=== PATIENT | female | born 1950 | race Caucasian/White ===

== ENCOUNTER 2020-04-07 07:56 | Inpatient (IN) | payer MEDICARE, MEDICAID ==
[~2020-04-07] VITALS: Ht 157.5 cm; Wt 98.6 kg
[~2020-04-07 07:56] MED LIST: BENA10TA9 PO; BIMA0.01 EACHEYE; CALC-6 OR; CLOP75TA41 PO; DIGO0.1262 PO; DIPH-232 PO; FUR40T PO; MULTTAB99 PO; POT10T PO; TRAM50TA2 PO
[2020-04-07] MEDS ORDERED: ACETAMINOPHEN/CODEINE#3 (300/30mg) TAB PO ONE (08:30)
[2020-04-07] MEDS ORDERED: MORPHINE SULF INJ 2 MG/ML SYRINGE 1ML IV ONE (09:15)
[2020-04-07] MEDS ORDERED: ONDANSETRON HCL 4 MG/2 ML VIAL IV ONE (09:15)
[2020-04-07 09:52] LABS: Basophils # (auto) 0 10 ^3/uL (0-0.2); Basophils % (auto) 0.2 % (0.0-2.0); Eosinophils # (auto) 0.1 10 ^3/uL (0-0.8); Eosinophils % (auto) 0.3 % (0.0-7.0); Hematocrit 44.8 % (36.0-46.0); Hemoglobin 14.7 g/dL (12.2-16.2); Lymphocytes # (auto) 1.6 10 ^3/uL (0.4-5.4); Lymphocytes % (auto) 10.8 % (10.0-50.0); Mean Corpuscular Hemoglobin 30.7 pg (28.0-32.0); Mean Corpuscular Hgb Conc. 32.8 g/dL (32.0-36.0); Mean Corpuscular Volume 93.7 fL (80.0-100.0); Monocytes # (auto) 0.7 10 ^3/uL (0-1.3); Monocytes % (auto) 4.8 % (0.0-12.0); Neutrophils # (auto) 12.4 10 ^3/uL (1.6-8.6); Neutrophils % (auto) 83.9 % (37.0-80.0); Platelet Count (auto) 319 10^3/uL (140-450); Red Blood Cells 4.78 10^6/uL (4.0-5.20); Red Cell Distribution Width 14.2 % (11.8-14.3); White Blood Cell 14.8 10^3/uL (4.4-10.8)
[2020-04-07 10:03] LABS: Albumin 3.2 g/dL (3.4-5.0); Anion Gap 4 (5-15); Blood Urea Nitrogen 14 mg/dL (7-18); Calcium 9.2 mg/dL (8.5-10.1); Carbon Dioxide 29 mmol/L (21-32); Chloride 106 mmol/L (98-107); Glucose 151 mg/dL (74-106); Potassium 4.3 mmol/L (3.5-5.1); Sodium 139 mmol/L (136-145)
[2020-04-07 10:09] LABS: Alanine Aminotransferase 24 U/L (13-56); Alkaline Phosphatase 108 U/L (45-117); Aspartate Aminotransferase 20 U/L (15-37); BUN/Creatinine Ratio 16.3; Bilirubin, Total 0.5 mg/dL (0.2-1.0); GFR African American 84 mL/min; GFR Non-African American 70 mL/min; INR 1.02 (0.9-1.15); Partial Thromboplastin Time 25.4 sec (23.0-31.2)
[2020-04-07] MEDS ORDERED: traMADol HCL 50 MG TAB PO PRN (11:15)
[2020-04-07] MEDS ORDERED: LACTULOSE 20Gm/30ML SOLN PO PRN (11:15)
[2020-04-07] MEDS ORDERED: ACETAMINOPHEN 500 MG TAB PO PRN (11:15)
[2020-04-07] MEDS ORDERED: GABA100C9 PO (11:52)
[2020-04-07] MEDS ORDERED: CHOL1TAB28 PO (11:52)
[2020-04-07] MEDS ORDERED: ALEN70TA56 PO (11:52)
[2020-04-07] MEDS ORDERED: FURO20TA3 PO (11:52)
[2020-04-07] MEDS ORDERED: METO25TA36 PO (11:52)
[2020-04-07] MEDS ORDERED: APIX5TAB PO (11:52)
[2020-04-07] MEDS ORDERED: ATOR20TA50 PO (11:52)
[2020-04-07] MEDS: MORPHINE SULF INJ 2 MG/ML SYRINGE 1ML IV PRN ×2 (14:31→23:18)
[2020-04-07] MEDS: ONDANSETRON HCL 4 MG/2 ML VIAL IV PRN ×2 (14:31→23:19)
[2020-04-07] MEDS: ACETAMINOPHEN 500 MG TAB PO PRN (20:10)
[2020-04-07] MEDS: CARVEDILOL 3.125 MG TAB PO SCH (22:00)
[2020-04-08 02:57] VITALS: BP 132/79
[2020-04-08] MEDS: MORPHINE SULF INJ 2 MG/ML SYRINGE 1ML IV PRN (03:48)
[2020-04-08] MEDS: ONDANSETRON HCL 4 MG/2 ML VIAL IV PRN ×2 (03:48→20:00)
[2020-04-08 05:00] VITALS: BP 117/65
[2020-04-08] MEDS: ACETAMINOPHEN 500 MG TAB PO PRN ×4 (06:44→19:23)
[2020-04-08 07:00] LABS: Urine Bacteria NONE SEEN /hpf (None Seen); Urine Blood Negative /uL (Negative); Urine Hyaline Cast FEW /lpf (0 - 2); Urine Specific Gravity 1.029 (1.001-1.035); Urine WBC 32 /hpf (0 - 5)
[2020-04-08 08:46] VITALS: BP 109/72
[2020-04-08] MEDS: NITROGLYCERIN 0.2MG/HR TOPICAL PATCH TD SCH (10:00)
[2020-04-08] MEDS ORDERED: NITROGLYCERIN 0.2MG/HR TOPICAL PATCH TD SCH (10:00)
[2020-04-08] MEDS: PANTOPRAZOLE 40 MG TAB PO SCH (10:07)
[2020-04-08] MEDS: POTASSIUM CHL 20 Meq TABLET PO SCH (10:07)
[2020-04-08] MEDS: ENALAPRIL MALEATE 2.5 MG TAB PO SCH (10:08)
[2020-04-08] MEDS: CARVEDILOL 3.125 MG TAB PO SCH ×2 (10:09→21:59)
[2020-04-08] MEDS: FUROSEMIDE 40 MG/4 ML VIAL IV SCH (10:10)
[2020-04-08 10:53] LABS: Albumin 3.1 g/dL (3.4-5.0); Calcium 9.2 mg/dL (8.5-10.1); Potassium 4.2 mmol/L (3.5-5.1)
[2020-04-08 10:57] LABS: BUN/Creatinine Ratio 20.9; Bilirubin, Total 0.5 mg/dL (0.2-1.0); Total Protein 7.2 g/dL (6.4-8.2)
[2020-04-08] MEDS ORDERED: cefTRIAXone 1GM/50ML D5W 50 ML IV ONE (12:45)
[2020-04-08 13:02] VITALS: BP 107/75
[2020-04-08 16:57] VITALS: BP 122/65
[2020-04-08 21:00] VITALS: BP 131/89
[2020-04-09 04:45] VITALS: BP 146/84
[2020-04-09] MEDS: ACETAMINOPHEN 500 MG TAB PO PRN (06:36)
[2020-04-09 09:00] VITALS: BP 131/74
[2020-04-09] MEDS: ONDANSETRON HCL 4 MG/2 ML VIAL IV PRN ×2 (09:46→18:10)
[2020-04-09] MEDS: cefTRIAXone 1GM/50ML D5W 50 ML IV SCH (09:46)
[2020-04-09] MEDS: PANTOPRAZOLE 40 MG TAB PO SCH (09:47)
[2020-04-09] MEDS: HYDROmorphone HCL 2 MG/ML VL IV PRN ×2 (09:47→18:09)
[2020-04-09] MEDS: POTASSIUM CHL 20 Meq TABLET PO SCH (09:47)
[2020-04-09] MEDS: CARVEDILOL 3.125 MG TAB PO SCH ×2 (09:48→22:15)
[2020-04-09] MEDS: ENALAPRIL MALEATE 2.5 MG TAB PO SCH (09:48)
[2020-04-09] MEDS: NITROGLYCERIN 0.2MG/HR TOPICAL PATCH TD SCH (10:00)
[2020-04-09] MEDS: FUROSEMIDE 40 MG/4 ML VIAL IV SCH (10:00)
[2020-04-09 13:00] VITALS: BP 128/73
[2020-04-09 17:00] VITALS: BP 114/65
[2020-04-09 20:00] VITALS: BP 139/71
[2020-04-09 22:00] VITALS: BP 139/71
[2020-04-10] MEDS: ONDANSETRON HCL 4 MG/2 ML VIAL IV PRN ×4 (02:29→20:36)
[2020-04-10] MEDS: HYDROmorphone HCL 2 MG/ML VL IV PRN ×4 (02:29→20:37)
[2020-04-10 05:00] VITALS: BP 124/89
[2020-04-10 08:46] VITALS: BP 151/76
[2020-04-10] MEDS: cefTRIAXone 1GM/50ML D5W 50 ML IV SCH (09:45)
[2020-04-10] MEDS: CARVEDILOL 3.125 MG TAB PO SCH ×2 (09:47→21:58)
[2020-04-10] MEDS: PANTOPRAZOLE 40 MG TAB PO SCH (09:47)
[2020-04-10] MEDS: POTASSIUM CHL 20 Meq TABLET PO SCH (09:48)
[2020-04-10] MEDS: ENALAPRIL MALEATE 2.5 MG TAB PO SCH (09:48)
[2020-04-10] MEDS: NITROGLYCERIN 0.2MG/HR TOPICAL PATCH TD SCH (09:48)
[2020-04-10] MEDS ORDERED: LIDOCAINE 1% HCL (LOCAL ANESTH.) INJ 20ML MDV ONE (11:34)
[2020-04-10] MEDS ORDERED: BUPIVACAINE 0.25% INJ 50ML VIAL ONE (11:35)
[2020-04-10] MEDS: FUROSEMIDE 40 MG/4 ML VIAL IV SCH (12:20)
[2020-04-10 12:38] VITALS: BP 134/83
[2020-04-10 17:00] VITALS: BP 134/70
[2020-04-10 20:00] VITALS: BP 140/88
[2020-04-10 22:00] VITALS: BP 140/88
[2020-04-11 05:00] VITALS: BP 139/87
[2020-04-11 08:58] VITALS: BP 150/81
[2020-04-11] MEDS: HYDROmorphone HCL 2 MG/ML VL IV PRN (09:31)
[2020-04-11] MEDS ORDERED: LIDOCAINE 1% HCL (LOCAL ANESTH.) INJ 20ML MDV ONE (09:37)
[2020-04-11] MEDS ORDERED: BUPIVACAINE 0.25% INJ 50ML VIAL ONE (09:37)
[2020-04-11] MEDS: NITROGLYCERIN 0.2MG/HR TOPICAL PATCH TD SCH (10:00)
[2020-04-11] MEDS: cefTRIAXone 1GM/50ML D5W 50 ML IV SCH (12:48)
[2020-04-11] MEDS: PANTOPRAZOLE 40 MG TAB PO SCH (12:49)
[2020-04-11] MEDS: CARVEDILOL 3.125 MG TAB PO SCH (12:49)
[2020-04-11] MEDS: POTASSIUM CHL 20 Meq TABLET PO SCH (12:49)
[2020-04-11] MEDS: ENALAPRIL MALEATE 2.5 MG TAB PO SCH (12:50)
[2020-04-11] MEDS: FUROSEMIDE 40 MG/4 ML VIAL IV SCH (12:51)
[2020-04-11 13:00] VITALS: BP 123/75
[2020-04-11 16:55] VITALS: BP 123/74
[2020-04-11 17:00] VITALS: BP 116/52
== END 2020-04-11 18:35 | disposition home or self-care (01) | DRG 342 ==
LOC: ER 07:56 → EDBD 07:56 → OVERFLOW 07:57 → CENTRAL 04-08 02:40
PROVIDERS: ADMIT Internal Medicine; ATTEND Family Medicine
DX: S52.251A Displaced comminuted fracture of shaft of ulna, right arm, initial encounter for closed fracture (principal); S52.501A Unspecified fracture of the lower end of right radius, initial encounter for closed fracture; N39.0 Urinary tract infection, site not specified; E11.65 Type 2 diabetes mellitus with hyperglycemia; J44.9 Chronic obstructive pulmonary disease, unspecified; W01.0XXA Fall on same level from slipping, tripping and stumbling without subsequent striking against object, initial encounter; D72.829 Elevated white blood cell count, unspecified; E66.9 Obesity, unspecified; Z20.828 Contact with and (suspected) exposure to other viral communicable diseases; F17.210 Nicotine dependence, cigarettes, uncomplicated; J96.20 Acute and chronic respiratory failure, unspecified whether with hypoxia or hypercapnia; M19.90 Unspecified osteoarthritis, unspecified site; I11.0 Hypertensive heart disease with heart failure; I25.10 Atherosclerotic heart disease of native coronary artery without angina pectoris; I25.2 Old myocardial infarction; Z80.0 Family history of malignant neoplasm of digestive organs; Z82.49 Family history of ischemic heart disease and other diseases of the circulatory system; Z83.3 Family history of diabetes mellitus; Z98.51 Tubal ligation status; Y93.89 Activity, other specified; Y92.090 Kitchen in other non-institutional residence as the place of occurrence of the external cause; Y99.8 Other external cause status; I50.20 Unspecified systolic (congestive) heart failure; Z68.39 Body mass index [BMI] 39.0-39.9, adult
CPT/HCPCS: 36415; 36600; 71045; 73100; 80053; 81001; 82550; 82805; 83880; 84443; 84484; 85025; 85610; 85730; 86850; 86900; 86901; 87081; 87086; 87426; 93005; 93306; 96374; 96375; 96376; G0378; J0696; J2001; J2405; J3490